=== PATIENT | female | born 1975 | race Caucasian/White ===

== ENCOUNTER 2023-09-15 16:33 | Emergency (ER) | payer BC ==
[~2023-09-15] VITALS: Ht 154.9 cm; Wt 90.9 kg
[2023-09-15 16:41] VITALS: TEMP 98.8
[2023-09-15] MEDS ORDERED: NS 1,000 ML IV ONE (17:00)
[2023-09-15 17:07] LABS: BASO # 0.1 K/mm3 (0.0-0.2); BASO % 0.7 % (0.0-2.0); EOS # 0.3 K/mm3 (0.0-0.7); EOS % 3.5 % (0.0-4.0); GRAN # 4.3 K/mm3 (1.4-6.5); GRAN % 56.8 % (42.2-75.2); LYMPH # 2.2 K/mm3 (1.2-3.4); LYMPH % 29.4 % (20.0-51.0); MEAN CELL VOLUME 58 fl (80.0-100.0); MEAN CORPUSCULAR HGB CONC 23 g/dl (33.0-37.0); MEAN PLATELET VOLUME 9.3 fl (7.4-10.4); MONO # 0.7 K/mm3 (0.1-0.6); MONO % 9.1 % (1.7-9.3); PLATELET COUNT 354 K/mm3 (130-400); RED BLOOD COUNT 4.63 M/mm3 (4.10-5.30); REDCELL DISTRIBUTION WIDTH-CV 24.3 % (11.5-14.5)
[2023-09-15 17:09] LABS: INR 1.1 (0.8-3.0); PROTHROMBIN TIME 11.8 SECONDS (9.7-12.8)
[2023-09-15 17:10] LABS: HEMOGLOBIN 6.3 g/dl (12.5-16.0); MEAN CORPUSCULAR HEMOGLOBIN 14 pg (27-31)
[2023-09-15 17:11] LABS: HEMATOCRIT 26.9 % (37.0-47.0)
[2023-09-15 17:24] LABS: ALBUMIN 3.6 g/dL (3.5-5.0); BILIRUBIN,TOTAL 0.3 mg/dL (0.2-1.2); CALCIUM 9.7 mg/dL (8.4-10.2); CREATININE, serum 0.77 mg/dL (0.57-1.11); POTASSIUM 3.8 mEq/L (3.5-4.5); TOTAL PROTEIN 6.9 g/dl (6.2-8.1)
[2023-09-15 17:27] VITALS: BP 139/74; PULSE 105
== END 2023-09-15 17:35 | disposition left against medical advice (07) ==
LOC: COL.ER 16:33
PROVIDERS: Physician Assistant
DX: D64.9 Anemia, unspecified (principal)